=== PATIENT | female | born 1960 | race Caucasian/White ===

== ENCOUNTER 2018-11-30 15:25 | Emergency (ER) | payer MEDICARE, OTHER ==
[~2018-11-30] VITALS: Wt 72.0 kg
[2018-11-30 15:30] VITALS: BP 109/70; PULSE 89; RESP 18
[2018-11-30] MEDS ORDERED: IPRATROPIUM (NEB) 0.5 MG/2.5 ML AMP NEB STA (16:01)
[2018-11-30] MEDS ORDERED: ALBUTEROL 0.083% (NEB) 2.5 MG/3 ML AMP NEB STA (16:01)
[2018-11-30] MEDS ORDERED: ATRO INH (17:18)
[2018-11-30] MEDS ORDERED: GUAI473L22 PO (17:18)
--- NOTE | 2018-11-30 17:43 | ERD ---
ER Documentation Chief Complaint Chief Complaint FEVER/COUGH X 4 DAYS HPI 58-year-old female presenting with fever and cough x4 days. Patient states her symptoms have been worsening and that she has a productive cough that tends to be worse at night. Patient states she is been coughing up green phlegm. Patient is a current smoker and says she smokes about 6 cigarettes a day she is been smoking for over 30 years. Patient states she also has fever and night chills. Patient denies any back pain chest pain but does state she is short of breath. patient denies past medical history denies allergies to medications. ROS All systems reviewed and are negative except as per history of present illness. Medications Home Meds Active Scripts Ipratropium [place]* (Atrovent HFA*) 12.9 Gm Aer.w.adap, 2 PUFF INH Q6 PRN for SHORTNESS OF BREATH, #1 EA Prov:SANDRA URBANO PA-C 11/30/18 Guaifenesin-Codeine Phosphate* (Guaifenesin* AC Cough Syrup) 473 Ml Liquid, 10 ML PO Q4H PRN for COUGH for 7 Days, ML Prov:SANDRA URBANO PA-C 11/30/18 Allergies Allergies: Coded Allergies: No Known Drug Allergies (Verified Allergy, Unknown, 11/30/18) PMhx/Soc Medical and Surgical Hx: pt denies Medical Hx Smoking Status: Current every day smoker FmHx Family History: No diabetes, No coronary disease, No other Physical Exam Vitals Vital Signs Date Temp Pulse Resp B/P (MAP) Pulse Ox O2 O2 Flow FiO2 Time Delivery Rate 11/30/18 89 18 99 21 16:25 11/30/18 99.0 89 18 109/70 99 15:30 (83) Physical Exam Const: No acute distress Head: Atraumatic Eyes: Normal Conjunctiva ENT: Normal External Ears, Nose and Mouth. Neck: Full range of motion. No meningismus. Resp: Wheezing bilateral and lower lung verduzco Cardio: Regular rate and rhythm, no murmurs Abd: Soft, non tender, non distended. Normal bowel sounds Skin: No petechiae or rashes Back: No midline or flank tenderness Result Diagram: 11/30/18 1620 Results 24 hrs Laboratory Tests Test 11/30/18 16:20 White Blood Count 6.4 10^3/ul Red Blood Count 3.55 10^6/ul Hemoglobin 11.5 g/dl Hematocrit 33.5 % Mean Corpuscular Volume 94.4 fl Mean Corpuscular Hemoglobin 32.4 pg Mean Corpuscular Hemoglobin Concent 34.3 g/dl Red Cell Distribution Width 15.0 % Platelet Count 237 10^3/UL Mean Platelet Volume 8.6 fl Immature Granulocytes % 0.600 % Neutrophils % 37.4 % Lymphocytes % 50.7 % Monocytes % 8.1 % Eosinophils % 2.3 % Basophils % 0.9 % Nucleated Red Blood Cells % 0.0 /100WBC Immature Granulocytes # 0.040 10^3/ul Neutrophils # 2.4 10^3/ul Lymphocytes # 3.3 10^3/ul Monocytes # 0.5 10^3/ul Eosinophils # 0.2 10^3/ul Basophils # 0.1 10^3/ul Nucleated Red Blood Cells # 0.0 10^3/ul Current Medications Medications Dose Sig/Macho Start Time Status Last (Trade) Ordered Route PRN Stop Time Admin Dose Reason Admin Albuterol 5 mg ONCE STAT 11/30/18 DC 11/30/18 (Proventil NEB 16:01 11/30/18 16:22 0.083% (Neb)) 16:04 Ipratropium 1.5 mg ONCE STAT 11/30/18 DC 11/30/18 [place] NEB 16:01 11/30/18 16:22 (Atrovent 16:04 0.02% (Neb)) Procedures/MDM ED course: RT consult Breathing treatment The patient was stable throughout the ED course. The patient and/or family informed of laboratory and diagnostic imaging results throughout the ED course. Diagnostic imaging: PROCEDURE: XR Chest. CLINICAL INDICATION: Asthma exacerbation TECHNIQUE: AP view of the chest was obtained. COMPARISON: None. FINDINGS: The cardiomediastinal silhouette is within normal limits. The lungs appear cl ear. No pleural effusion or pneumothorax is identified. The visualized osseous structures appear intact. IMPRESSION: No active cardiopulmonary disease identified. Medications given in ER: Albuterol Atrovent Patient tolerated medication well with no adverse reactions. Patient reported improvement in pain. Medical decision makin-year-old female presenting with fever cough shortness of breath x4 days. Patient's physical exam revealed wheezing bilateral and lower lung verduzco. Patient's HEENT exam was unremarkable. Patient had no CVA tenderness, patient had no chest pain. Patient received respiratory therapy consult and was given a breathing treatment. Patient was reevaluated after the breathing treatment patient states she feels much better there was mild wheezing still heard but the patient reports improved symptoms and O2 saturations are 99% on room air. Patient was advised that this is most likely a viral illness and she is being discharged with Atrovent and guaifenesin. Patient was advised that she cannot drive on the cough medication and she should only take it at night if cough persists before bed. Low suspicion for pneumonia, meningitis, sinusitis, otitis externa, acute otitis media, strep pharyngitis, epiglottitis or peritonsillar abscess There is no signs of pneumonia so no antibiotics were given to the patient. Patient was advised that if symptoms worsen to return to the ER immediately. The patient was advised that she needs to follow-up with her primary care within 1 to 2 days regarding this visit. The patient was agreement into the treatment plan and had no further questions upon discharge Prescription for home: Atrovent Guaifenesin Discharge: At this time, patient is stable for discharge and outpatient management. I have instructed the patient to follow-up with his\her primary care physician in 1 to 2 days. I have discussed with the patient the possibility of needing to see a specialist for further work-up and imaging studies if symptoms persist. I have instructed the patient to promptly return to the ER for any new or worsening symptoms including increased pain, fever, nausea, vomiting, weakness or LOC. The patient and\or family expressed understanding of and agreement with this plan. All questions were answered. Home care instructions were provided. Disclaimer: Inadvertent spelling and grammatical errors are likely due to EHR\dictation software use and do not reflect on the overall quality of patient care. Also, please note that the electronic time recorded on the note does not necessarily reflect the actual time of the patient encounter. Departure Diagnosis: Primary Impression: Acute bronchitis Bronchitis organism: unspecified organism Qualified Codes: J20.9 - Acute bronchitis, unspecified Condition: Good Patient Instructions: Bronchitis With Wheezing (Adult) Referrals: COMMUNITY CLINICS YOU HAVE RECEIVED A MEDICAL SCREENING EXAM AND THE RESULTS INDICATE THAT YOU DO NOT HAVE A CONDITION THAT REQUIRES URGENT TREATMENT IN THE EMERGENCY DEPARTMENT. FURTHER EVALUATION AND TREATMENT OF YOUR CONDITION CAN WAIT UNTIL YOU ARE SEEN IN YOUR DOCTORS OFFICE WITHIN THE NEXT 1-2 DAYS. IT IS YOUR RESPONSIBILITY TO MAKE AN AP[facility]MENT [facility] IF YOU HAVE A PRIMARY DOCTOR --you should call your primary doctor and schedule an appointment IF YOU DO NOT HAVE A PRIMARY DOCTOR YOU CAN CALL OUR PHYSICIAN REFERRAL HOTLINE AT IF YOU CAN NOT AFFORD TO SEE A PHYSICIAN YOU CAN CHOSE FROM THE FOLLOWING [facility] [address] [facility] [address] [facility] [facility] [address] [facility] [address] [facility] [address] [facility] [address] [address] [facility] [address] Additional Instructions: FOLLOW UP WITH YOUR PRIMARY CARE PHYSICIAN TOMORROW.Return to this facility if you are not improving as expected. SANDRA URBANO PA-C Nov 30, 2018 17:42
== END 2018-11-30 17:36 | disposition home or self-care (01) ==
LOC: FTE 15:25
DX: J20.9 Acute bronchitis, unspecified (principal); F17.210 Nicotine dependence, cigarettes, uncomplicated
CPT/HCPCS: 71045; 85025; 94644